=== PATIENT | female | born 1960 | race Caucasian/White ===

== ENCOUNTER 2016-07-14 13:16 | Emergency (ER) | payer MEDICAID ==
[~2016-07-14] VITALS: Ht 167.6 cm; Wt 55.1 kg
[~2016-07-14 13:16] MED LIST: ABILIFY 10MG TA10 MG PO; ALEVE 220MG220 MG PO; AMITRIPTYLINE H50 M1 PO; ASPIRIN 32325 MG/TAB PO; BUSPIRONE; CATAPRES 0.1MG0.1 MG PO; CELEBREX 200MG200 MG; CELEBREX50 MG PO; CELEXA; CLONAZEPAM PO; CYMBALTA 60MG60 MG PO; CYMBALTA20 MG PO; DEPAKOTE; DILAUDID 2MG TAB2 MG PO; FERROUS SU325 MG/TAB PO; FOLIC ACID; HYDROCODONE/APAP; KLONOPIN 0.5MG0.5 MG PO; KLONOPIN 1MG1 MG PO; LEXAPRO20 MG PO; LYRICA; LYRICA300 MG PO; MOBIC15 MG PO; NEURONTIN; OXYCODONE; OXYCODONE5 MG PO; OXYCONTIN20 MG PO; OXYCONTIN40 MG PO; OXYCONTIN60 MG PO; PHENERGAN 25 TA25 MG PO; ROXICODONE 55 MG/TAB PO; ROXICODONE15 MG PO; SEROQUEL 200MG200 MG PO; SEROQUEL400 MG PO; SOMA 350MG350 MG/TAB PO; ULTRAM 50MG TAB50 MG PO; VITAMIN C500 MG PO; XANAX 1MG1 MG PO
[2016-07-14 13:23] VITALS: BP 131/82; TEMP 98.7
[2016-07-14] MEDS ORDERED: VALIUM 5MG T5 MG/TAB PO (14:37)
[2016-07-14] MEDS ORDERED: PERCOCET 325 MG1 TA2 PO ×2 (14:37→14:57)
[2016-07-14] MEDS ORDERED: SOMA 350MG350 MG/TAB PO ×2 (14:56→14:57)
[2016-07-14 15:20] VITALS: PULSE 92
== END 2016-07-14 15:20 | disposition home or self-care (01) ==
LOC: COL.ER 13:16
DX: M54.5 Low back pain (principal); G89.29 Other chronic pain
CPT/HCPCS: J3360

== ENCOUNTER 2016-08-04 11:50 | Emergency (ER) | payer MEDICAID ==
[~2016-08-04] VITALS: Ht 172.7 cm; Wt 56.8 kg
[~2016-08-04 11:50] MED LIST changes: +PERCOCET 325 MG1 TA2 PO; +VALIUM 5MG T5 MG/TAB PO
[2016-08-04 11:56] VITALS: TEMP 99.3
[2016-08-04 13:05] LABS: AMPHETAMINE URINE NEGATIVE; BARBITURATES URINE NEGATIVE; BENZODIAZEPINES URINE NEGATIVE; BUPRENORPHINE URINE NEGATIVE; METHADONE URINE NEGATIVE; OPIATES URINE NEGATIVE; OXYCODONE URINE NEGATIVE; PHENCYCLIDINE URINE NEGATIVE; PROPOXYPHENE URINE NEGATIVE; THC CANNABINOIDS URINE NEGATIVE
[2016-08-04 13:53] LABS: BASO # 0.1 (0.0-0.2); BASO % 0.6 % (0.0-2.0); EOS # 0.1 (0.0-0.7); EOS % 1.3 % (0-4.0); GRAN % 48.5 % (42.2-75.2); HEMATOCRIT 40.2 % (37.0-47.0); HEMOGLOBIN 13.3 g/dl (12.5-16.0); LYMPH # 3.3 (1.2-3.4); MEAN CELL VOLUME 98 fl (80.0-100.0); MEAN CORPUSCULAR HEMOGLOBIN 32 pg (27.0-31.0); MEAN CORPUSCULAR HGB CONC 33 g/dl (33.0-37.0); MEAN PLATELET VOLUME 9.1 fl (7.4-10.4); MONO # 0.8 (0.1-0.6); MONO % 9.4 % (1.7-9.3); PLATELET COUNT 297 K/mm3 (130-400); RED BLOOD COUNT 4.12 M/mm3 (4.10-5.30); REDCELL DISTRIBUTION WIDTH-CV 13.4 % (11.5-14.5); WHITE BLOOD COUNT 8.3 K/mm3 (4.8-10.8)
[2016-08-04 13:58] LABS: ADJUSTED CALCIUM 9.7 mg/dL (8.4-10.2); ALANINE AMINOTRANSFERASE 22 U/L (9-52); ALBUMIN 4.6 gm/dL (3.5-5.0); ALKALINE PHOSPHATASE 92 U/L (50-136); ANION GAP 13 mmol/L (7-16); BILIRUBIN,TOTAL 0.5 mg/dL (0.0-1.0); BLOOD UREA NITROGEN 19 mg/dL (7-17); CALCIUM 10.2 mg/dL (8.4-10.2); CARBON DIOXIDE 27 mmol/L (22-30); CHLORIDE 102 mmol/L (98-107); CREATININE, serum 0.73 mg/dL (0.52-1.25); GLUCOSE 90 mg/dL (74-106); POTASSIUM 4.1 mmol/L (3.4-5.0); SODIUM 142 mmol/L (137-145); TOTAL PROTEIN 7.7 gm/dL (6.4-8.2)
[2016-08-04 16:51] LABS: PROLACTIN 5.8 ng/mL (3.0-18.6)
[2016-08-04] MEDS ORDERED: VALIUM 5MG T5 MG/TAB PO (16:51)
[2016-08-04 16:55] LABS: TROPONIN-I < 0.012 ng/mL (0.000-0.034)
[2016-08-04 17:06] VITALS: BP 145/85; PULSE 97
[2016-08-04 17:33] LABS: PH 5 (5-8); SQUAMOUS EPITHELIAL None Seen /hpf; URINE APPEARANCE Clear; URINE BACTERIA None Seen /hpf; URINE BILIRUBIN Negative (NEGATIVE); URINE BLOOD Negative (NEGATIVE); URINE COLOR Straw; URINE GLUCOSE Negative (NEGATIVE); URINE KETONE Negative (NEGATIVE); URINE RBC 0-2 /hpf; URINE UROBILINOGEN Negative (NEGATIVE); URINE WBC 0-2 /hpf
== END 2016-08-04 17:08 | disposition home or self-care (01) ==
LOC: COL.ER 11:50
PROVIDERS: Emergency Medicine
DX: F41.9 Anxiety disorder, unspecified (principal); F32.9 Major depressive disorder, single episode, unspecified; R20.0 Anesthesia of skin

== ENCOUNTER 2016-12-16 06:29 | Emergency (ER) | payer MEDICAID ==
[~2016-12-16] VITALS: Ht 165.1 cm; Wt 62.3 kg
[2016-12-16 06:32] VITALS: TEMP 98.5
[2016-12-16] MEDS ORDERED: NAPROSYN500 MG PO (06:35)
[2016-12-16 07:06] LABS: BASO # 0.1 (0.0-0.2); BASO % 1.4 % (0.0-2.0); EOS # 0.2 (0.0-0.7); EOS % 3.2 % (0-4.0); GRAN # 2.3 (1.4-6.5); GRAN % 40.5 % (42.2-75.2); HEMOGLOBIN 12.1 g/dl (12.5-16.0); LYMPH # 2.5 (1.2-3.4); LYMPH % 44.5 % (20.0-51.0); MEAN CELL VOLUME 98 fl (80.0-100.0); MEAN CORPUSCULAR HEMOGLOBIN 33 pg (27.0-31.0); MEAN CORPUSCULAR HGB CONC 34 g/dl (33.0-37.0); MEAN PLATELET VOLUME 8.7 fl (7.4-10.4); MONO # 0.6 (0.1-0.6); MONO % 10.2 % (1.7-9.3); PLATELET COUNT 252 K/mm3 (130-400); RED BLOOD COUNT 3.69 M/mm3 (4.10-5.30); REDCELL DISTRIBUTION WIDTH-CV 13.2 % (11.5-14.5); WHITE BLOOD COUNT 5.6 K/mm3 (4.8-10.8)
[2016-12-16 07:17] LABS: ADJUSTED CALCIUM 9.2 mg/dL (8.4-10.2); ALANINE AMINOTRANSFERASE 25 U/L (9-52); ALBUMIN 3.8 gm/dL (3.5-5.0); ALKALINE PHOSPHATASE 67 U/L (50-136); ANION GAP 8 mmol/L (7-16); BILIRUBIN,TOTAL 0.6 mg/dL (0.0-1.0); BLOOD UREA NITROGEN 11 mg/dL (7-17); CARBON DIOXIDE 23 mmol/L (22-30); CHLORIDE 107 mmol/L (98-107); CREATININE, serum 0.68 mg/dL (0.52-1.25); GLUCOSE 94 mg/dL (74-106); POTASSIUM 3.7 mmol/L (3.4-5.0); SODIUM 138 mmol/L (137-145); TOTAL PROTEIN 6.5 gm/dL (6.4-8.2)
[2016-12-16 07:29] LABS: TROPONIN-I < 0.012 ng/mL (0.000-0.034)
[2016-12-16] MEDS ORDERED: ATARAX 25MG25 MG/TAB PO (09:45)
[2016-12-16 10:45] VITALS: BP 131/79; PULSE 83
== END 2016-12-16 10:10 | disposition home or self-care (01) ==
LOC: COL.ER 06:29
PROVIDERS: Emergency Medicine
DX: G43.409 Hemiplegic migraine, not intractable, without status migrainosus (principal); F32.9 Major depressive disorder, single episode, unspecified; F41.9 Anxiety disorder, unspecified
CPT/HCPCS: J1200; J1885; J2765; J7030

== ENCOUNTER 2017-03-16 12:39 | Emergency (ER) | payer MEDICAID ==
[~2017-03-16] VITALS: Ht 165.1 cm; Wt 69.1 kg
[~2017-03-16 12:39] MED LIST changes: +ATARAX 25MG25 MG/TAB PO; +NAPROSYN500 MG PO
[2017-03-16 12:48] VITALS: BP 141/80; PULSE 83; TEMP 98.3
[2017-03-16] MEDS ORDERED: SEROQUEL XR200 MG PO (12:52)
[2017-03-16] MEDS ORDERED: CYMBALTA 60MG60 MG PO (12:52)
[2017-03-16] MEDS ORDERED: SEROQUEL50 MG PO (12:53)
== END 2017-03-16 13:49 | disposition left against medical advice (07) ==
LOC: COL.ER 12:39
DX: H92.02 Otalgia, left ear (principal)

== ENCOUNTER 2017-04-02 09:44 | Emergency (ER) | payer MEDICAID ==
[~2017-04-02] VITALS: Ht 165.1 cm; Wt 71.5 kg
[~2017-04-02 09:44] MED LIST changes: +SEROQUEL XR200 MG PO; +SEROQUEL50 MG PO
[2017-04-02 09:46] VITALS: TEMP 98.9
[2017-04-02] MEDS ORDERED: ZYPREXA 5MG5 MG PO (10:33)
[2017-04-02 10:56] VITALS: BP 136/77; PULSE 76
== END 2017-04-02 10:57 | disposition home or self-care (01) ==
LOC: COL.ER 09:44
DX: F41.9 Anxiety disorder, unspecified (principal)

== ENCOUNTER 2017-04-22 18:51 | Emergency (ER) | payer MEDICAID ==
[~2017-04-22] VITALS: Ht 165.1 cm; Wt 75.0 kg
[~2017-04-22 18:51] MED LIST changes: +ZYPREXA 5MG5 MG PO
[2017-04-22 18:54] VITALS: BP 139/85; TEMP 98.2
[2017-04-22] MEDS ORDERED: SEROQUEL50 MG PO (19:58)
[2017-04-22] MEDS ORDERED: ATARAX50 MG PO (19:59)
[2017-04-22] MEDS ORDERED: ATARAX 25MG25 MG/TAB PO (20:01)
[2017-04-22 20:53] VITALS: PULSE 75
== END 2017-04-22 20:53 | disposition home or self-care (01) ==
LOC: COL.ER 18:51
DX: F41.9 Anxiety disorder, unspecified (principal); G43.909 Migraine, unspecified, not intractable, without status migrainosus; F32.9 Major depressive disorder, single episode, unspecified; M54.9 Dorsalgia, unspecified; G89.29 Other chronic pain; F17.210 Nicotine dependence, cigarettes, uncomplicated
CPT/HCPCS: J1630

== ENCOUNTER 2017-06-24 12:50 | Emergency (ER) | payer MEDICAID ==
[~2017-06-24] VITALS: Ht 165.1 cm; Wt 78.0 kg
[~2017-06-24 12:50] MED LIST changes: +ATARAX50 MG PO
[2017-06-24 13:02] VITALS: BP 146/70; TEMP 98.3
[2017-06-24] MEDS ORDERED: LATUDA20 MG PO (13:43)
[2017-06-24] MEDS ORDERED: CENTRUM SILVER1 TAB PO (13:44)
[2017-06-24 13:51] LABS: TRICYCLIC ANTIDEPRESS URINE POSITIVE
[2017-06-24 14:00] LABS: BASO # 0.1 (0.0-0.2); BASO % 0.8 % (0.0-2.0); EOS # 0.2 (0.0-0.7); EOS % 2.4 % (0-4.0); GRAN % 42.8 % (42.2-75.2); HEMATOCRIT 43.2 % (37.0-47.0); HEMOGLOBIN 14.4 g/dl (12.5-16.0); LYMPH % 42.6 % (20.0-51.0); MEAN CELL VOLUME 97 fl (80.0-100.0); MEAN CORPUSCULAR HEMOGLOBIN 32 pg (27.0-31.0); MEAN CORPUSCULAR HGB CONC 33 g/dl (33.0-37.0); MEAN PLATELET VOLUME 9.1 fl (7.4-10.4); MONO # 0.8 (0.1-0.6); MONO % 11.3 % (1.7-9.3); PLATELET COUNT 293 K/mm3 (130-400); RED BLOOD COUNT 4.45 M/mm3 (4.10-5.30); REDCELL DISTRIBUTION WIDTH-CV 13.7 % (11.5-14.5)
[2017-06-24 14:10] LABS: ALANINE AMINOTRANSFERASE 27 U/L (9-52); ALBUMIN 4.3 gm/dL (3.5-5.0); ALKALINE PHOSPHATASE 100 U/L (50-136); ANION GAP 13 mmol/L (7-16); AST,SGOT 33 U/L (15-37); BILIRUBIN,TOTAL 0.3 mg/dL (0.0-1.0); BLOOD UREA NITROGEN 16 mg/dL (7-17); CALCIUM 9.8 mg/dL (8.4-10.2); CARBON DIOXIDE 26 mmol/L (22-30); CHLORIDE 103 mmol/L (98-107); CREATININE, serum 0.71 mg/dL (0.52-1.25); GLUCOSE 89 mg/dL (74-106); POTASSIUM 4.5 mmol/L (3.4-5.0); SODIUM 142 mmol/L (137-145); TOTAL PROTEIN 7.8 gm/dL (6.4-8.2)
[2017-06-24 14:13] LABS: ACETAMINOPHEN < 10 ug/mL (10-30); ALCOHOL(ethanol),MEDICAL < 10 mg/dL; SALICYLATE < 1.0 mg/dL
[2017-06-24 17:30] VITALS: PULSE 82
== END 2017-06-24 17:31 | disposition home or self-care (01) ==
LOC: COL.ER 12:50
PROVIDERS: Physician Assistant
DX: F32.9 Major depressive disorder, single episode, unspecified (principal); F41.9 Anxiety disorder, unspecified; F17.210 Nicotine dependence, cigarettes, uncomplicated
CPT/HCPCS: J1885

== ENCOUNTER → 2017-08-29 | Outpatient (CLI) | payer MEDICAID ==
[~2017-08-29] MED LIST changes: +AMBIEN 10MG10 MG PO; +CENTRUM SILVER1 TAB PO; +LATUDA20 MG PO; +REXULTI0.5 MG PO; +TOPAMAX50 MG PO
== END ==
LOC: COL.RAD 14:00
DX: M47.816 Spondylosis without myelopathy or radiculopathy, lumbar region (principal); M51.27 Other intervertebral disc displacement, lumbosacral region; M99.73 Connective tissue and disc stenosis of intervertebral foramina of lumbar region; M48.061 Spinal stenosis, lumbar region without neurogenic claudication; M46.86 Other specified inflammatory spondylopathies, lumbar region

== ENCOUNTER 2017-10-14 12:58 | Emergency (ER) | payer MEDICAID ==
[~2017-10-14] VITALS: Ht 170.2 cm; Wt 69.5 kg
[2017-10-14 13:00] VITALS: BP 140/80; TEMP 98.1
[2017-10-14] MEDS ORDERED: DESYREL 100MG100 MG PO (13:10)
[2017-10-14] MEDS ORDERED: CYMBALTA 60MG60 MG PO (13:11)
[2017-10-14] MEDS ORDERED: ULTRAM 50MG TAB50 MG PO (14:47)
[2017-10-14 15:12] VITALS: PULSE 86
== END 2017-10-14 15:15 | disposition home or self-care (01) ==
LOC: COL.ER 12:58
DX: S22.32XA Fracture of one rib, left side, initial encounter for closed fracture (principal); F41.9 Anxiety disorder, unspecified; F17.210 Nicotine dependence, cigarettes, uncomplicated; Z98.890 Other specified postprocedural states; W19.XXXA Unspecified fall, initial encounter; W22.8XXA Striking against or struck by other objects, initial encounter; Y92.009 Unspecified place in unspecified non-institutional (private) residence as the place of occurrence of the external cause
CPT/HCPCS: A9284; J1885

== ENCOUNTER 2017-10-15 12:20 | Emergency (ER) | payer MEDICAID ==
[~2017-10-15] VITALS: Ht 167.6 cm; Wt 69.5 kg
[~2017-10-15 12:20] MED LIST changes: +DESYREL 100MG100 MG PO
[2017-10-15 12:24] VITALS: TEMP 98
[2017-10-15 13:26] LABS: BASO # 0.1 (0.0-0.2); EOS # 0.3 (0.0-0.7); EOS % 4.6 % (0-4.0); GRAN # 3.8 (1.4-6.5); GRAN % 51.8 % (42.2-75.2); HEMATOCRIT 37.2 % (37.0-47.0); HEMOGLOBIN 12.9 g/dl (12.5-16.0); LYMPH # 2.5 (1.2-3.4); LYMPH % 34.1 % (20.0-51.0); MEAN CELL VOLUME 94 fl (80.0-100.0); MEAN CORPUSCULAR HEMOGLOBIN 33 pg (27.0-31.0); MEAN CORPUSCULAR HGB CONC 35 g/dl (33.0-37.0); MEAN PLATELET VOLUME 8.6 fl (7.4-10.4); MONO # 0.6 (0.1-0.6); MONO % 8.4 % (1.7-9.3); PLATELET COUNT 327 K/mm3 (130-400); RED BLOOD COUNT 3.95 M/mm3 (4.10-5.30); REDCELL DISTRIBUTION WIDTH-CV 13.9 % (11.5-14.5)
[2017-10-15 13:43] LABS: COLLECTION METHOD CLEAN CATCH
[2017-10-15 13:44] LABS: ALANINE AMINOTRANSFERASE 21 U/L (9-52); ALBUMIN 4.1 gm/dL (3.5-5.0); ALKALINE PHOSPHATASE 76 U/L (50-136); ANION GAP 9 mmol/L (7-16); AST,SGOT 25 U/L (15-37); BILIRUBIN,TOTAL 0.2 mg/dL (0.0-1.0); BLOOD UREA NITROGEN 10 mg/dL (7-17); CALCIUM 9.7 mg/dL (8.4-10.2); CARBON DIOXIDE 25 mmol/L (22-30); CHLORIDE 104 mmol/L (98-107); CREATININE, serum 0.89 mg/dL (0.52-1.25); GLUCOSE 95 mg/dL (74-106); POTASSIUM 3.8 mmol/L (3.4-5.0); SODIUM 138 mmol/L (137-145)
[2017-10-15 13:49] LABS: ACETAMINOPHEN < 10 ug/mL (10-30); ALCOHOL(ethanol),MEDICAL < 10 mg/dL; SALICYLATE < 1.0 mg/dL
[2017-10-15 13:49] LABS: MUCOUS Present /lpf; PH 5 (5-8); SQUAMOUS EPITHELIAL None Seen /hpf; URINE APPEARANCE Clear; URINE BACTERIA Rare /hpf; URINE BILIRUBIN Negative (NEGATIVE); URINE BLOOD Negative (NEGATIVE); URINE COLOR Yellow; URINE GLUCOSE Negative (NEGATIVE); URINE KETONE Negative (NEGATIVE); URINE LEUKOCYTE ESTERASE Negative (NEGATIVE); URINE NITRATE Negative (NEGATIVE); URINE PROTEIN(semi-quant) Negative (NEGATIVE); URINE RBC None Seen /hpf; URINE UROBILINOGEN Negative (NEGATIVE)
[2017-10-15 14:18] LABS: TRICYCLIC ANTIDEPRESS URINE NEGATIVE
[2017-10-15 17:03] VITALS: BP 125/85; PULSE 90
== END 2017-10-15 17:00 | disposition home or self-care (01) ==
LOC: COL.ER 12:20
PROVIDERS: Emergency Medicine
DX: F32.9 Major depressive disorder, single episode, unspecified (principal); F41.9 Anxiety disorder, unspecified; R45.851 Suicidal ideations; F17.210 Nicotine dependence, cigarettes, uncomplicated; Z87.81 Personal history of (healed) traumatic fracture

== ENCOUNTER 2018-05-10 10:20 | Emergency (ER) | payer MEDICAID ==
[~2018-05-10] VITALS: Ht 165.1 cm; Wt 65.9 kg
[2018-05-10 10:25] VITALS: BP 127/90; TEMP 98.6
[2018-05-10 11:16] LABS: TRICYCLIC ANTIDEPRESS URINE NEGATIVE
[2018-05-10 11:25] LABS: BASO # 0.1 (0.0-0.2); BASO % 0.7 % (0.0-2.0); EOS # 0.1 (0.0-0.7); EOS % 1.3 % (0-4.0); GRAN # 4.4 (1.4-6.5); GRAN % 62.1 % (42.2-75.2); HEMATOCRIT 40.5 % (37.0-47.0); HEMOGLOBIN 13.9 g/dl (12.5-16.0); LYMPH % 28.2 % (20.0-51.0); MEAN CELL VOLUME 94 fl (80.0-100.0); MEAN CORPUSCULAR HEMOGLOBIN 32 pg (27.0-31.0); MEAN CORPUSCULAR HGB CONC 34 g/dl (33.0-37.0); MEAN PLATELET VOLUME 8.8 fl (7.4-10.4); MONO # 0.5 (0.1-0.6); MONO % 7.4 % (1.7-9.3); PLATELET COUNT 347 K/mm3 (130-400); RED BLOOD COUNT 4.32 M/mm3 (4.10-5.30); REDCELL DISTRIBUTION WIDTH-CV 13.6 % (11.5-14.5)
[2018-05-10 11:33] LABS: ALANINE AMINOTRANSFERASE 15 U/L (9-52); ALBUMIN 3.8 gm/dL (3.5-5.0); ALKALINE PHOSPHATASE 96 U/L (50-136); ANION GAP 5 mmol/L (7-16); AST,SGOT 21 U/L (15-37); BILIRUBIN,TOTAL 0.4 mg/dL (0.0-1.0); BLOOD UREA NITROGEN 9 mg/dL (7-17); CALCIUM 9.2 mg/dL (8.4-10.2); CARBON DIOXIDE 26 mmol/L (22-30); CHLORIDE 106 mmol/L (98-107); CREATININE, serum 0.65 mg/dL (0.52-1.25); GLUCOSE 102 mg/dL (74-106); SODIUM 137 mmol/L (137-145); TOTAL PROTEIN 6.9 gm/dL (6.4-8.2)
[2018-05-10 11:34] LABS: ACETAMINOPHEN < 10 ug/mL (10-30); ALCOHOL(ethanol),MEDICAL < 10 mg/dL; SALICYLATE < 1.0 mg/dL
[2018-05-10 12:03] LABS: THYROID STIMULATING HORMONE 0.511 uIU/mL (0.465-4.680)
[2018-05-10 15:32] VITALS: PULSE 92
== END 2018-05-10 15:32 | disposition home or self-care (01) ==
LOC: COL.ER 10:20
PROVIDERS: Emergency Medicine
DX: R45.851 Suicidal ideations (principal); F32.9 Major depressive disorder, single episode, unspecified; F15.10 Other stimulant abuse, uncomplicated; F41.9 Anxiety disorder, unspecified; Z79.891 Long term (current) use of opiate analgesic

== ENCOUNTER 2018-11-20 18:22 | Emergency (ER) | payer MEDICAID ==
[~2018-11-20] VITALS: Ht 162.6 cm; Wt 65.9 kg
[2018-11-20 19:25] VITALS: BP 119/66; TEMP 98.3
[2018-11-20] MEDS ORDERED: NORCO 325 MG-51 TAB PO (21:11)
[2018-11-20 21:30] VITALS: PULSE 87
== END 2018-11-20 21:30 | disposition home or self-care (01) ==
LOC: COL.ER 18:22
DX: S52.121A Displaced fracture of head of right radius, initial encounter for closed fracture (principal); M25.561 Pain in right knee; F17.210 Nicotine dependence, cigarettes, uncomplicated; W10.9XXA Fall (on) (from) unspecified stairs and steps, initial encounter; Y92.009 Unspecified place in unspecified non-institutional (private) residence as the place of occurrence of the external cause
CPT/HCPCS: L1846; Q4050

== ENCOUNTER 2019-12-12 09:48 | Emergency (ER) | payer MEDICAID ==
[~2019-12-12] VITALS: Ht 167.6 cm; Wt 96.6 kg
[~2019-12-12 09:48] MED LIST changes: +NORCO 325 MG-51 TAB PO
[2019-12-12 09:54] VITALS: TEMP 98.9
[2019-12-12] MEDS ORDERED: ZYPREXA ZYDIS5 MG PO (11:02)
[2019-12-12] MEDS ORDERED: CYMBALTA 60MG60 MG PO (11:02)
[2019-12-12] MEDS ORDERED: DESYREL 100MG100 MG PO (11:02)
[2019-12-12] MEDS ORDERED: ATARAX 25MG25 MG/TAB PO (11:23)
[2019-12-12 11:57] VITALS: PULSE 85
== END 2019-12-12 11:33 | disposition home or self-care (01) ==
LOC: COL.ER 09:48
DX: G89.29 Other chronic pain (principal); M25.569 Pain in unspecified knee; F41.9 Anxiety disorder, unspecified; F32.9 Major depressive disorder, single episode, unspecified; Z91.19 Patient's noncompliance with other medical treatment and regimen; Z88.8 Allergy status to other drugs, medicaments and biological substances
CPT/HCPCS: J1885

== ENCOUNTER 2020-05-15 16:06 | Emergency (ER) | payer MEDICAID ==
[~2020-05-15] VITALS: Ht 167.6 cm; Wt 90.9 kg
[~2020-05-15 16:06] MED LIST changes: +ZYPREXA ZYDIS5 MG PO
[2020-05-15 16:20] VITALS: TEMP 98.6
[2020-05-15] MEDS ORDERED: LIDODERM 5% PATC1 EA TP (17:54)
[2020-05-15] MEDS ORDERED: SOMA250 MG PO ×2 (17:54)
[2020-05-15 18:22] VITALS: BP 138/88; PULSE 94
[2020-05-16] MEDS ORDERED: SOMA 350MG350 MG/TAB PO (10:11)
== END 2020-05-15 18:22 | disposition home or self-care (01) ==
LOC: COL.ER 16:06
DX: M54.5 Low back pain (principal); F41.9 Anxiety disorder, unspecified; F32.9 Major depressive disorder, single episode, unspecified; G89.29 Other chronic pain; F17.290 Nicotine dependence, other tobacco product, uncomplicated; Z88.8 Allergy status to other drugs, medicaments and biological substances
CPT/HCPCS: J1885; J2360

== ENCOUNTER 2020-08-30 10:11 | Emergency (ER) | payer MEDICAID ==
[~2020-08-30] VITALS: Ht 167.6 cm; Wt 90.9 kg
[~2020-08-30 10:11] MED LIST changes: +LIDODERM 5% PATC1 EA TP; +SOMA250 MG PO
[2020-08-30 11:02] LABS: COLLECTION METHOD CLEAN CATCH
[2020-08-30 11:06] LABS: BASO % 0.5 % (0.0-2.0); EOS # 0.1 (0.0-0.7); EOS % 1.3 % (0-4.0); GRAN # 4.6 (1.4-6.5); GRAN % 58.1 % (42.2-75.2); HEMATOCRIT 43.9 % (37.0-47.0); HEMOGLOBIN 14.3 g/dl (12.5-16.0); LYMPH # 2.4 (1.2-3.4); LYMPH % 30.8 % (20.0-51.0); MEAN CELL VOLUME 96 fl (80.0-100.0); MEAN CORPUSCULAR HEMOGLOBIN 31 pg (27.0-31.0); MEAN CORPUSCULAR HGB CONC 33 g/dl (33.0-37.0); MEAN PLATELET VOLUME 9.8 fl (7.4-10.4); MONO # 0.7 (0.1-0.6); PLATELET COUNT 284 K/mm3 (130-400); RED BLOOD COUNT 4.57 M/mm3 (4.10-5.30); REDCELL DISTRIBUTION WIDTH-CV 13.7 % (11.5-14.5)
[2020-08-30 11:13] LABS: PH 6 (5-8); SQUAMOUS EPITHELIAL 0-2 /hpf; URINE APPEARANCE Clear; URINE BACTERIA None Seen /hpf; URINE BILIRUBIN Negative (NEGATIVE); URINE BLOOD Negative (NEGATIVE); URINE COLOR Yellow; URINE GLUCOSE Negative (NEGATIVE); URINE KETONE Negative (NEGATIVE); URINE LEUKOCYTE ESTERASE Negative (NEGATIVE); URINE NITRATE Negative (NEGATIVE); URINE PROTEIN(semi-quant) Negative (NEGATIVE); URINE RBC 0-2 /hpf; URINE UROBILINOGEN Negative (NEGATIVE)
[2020-08-30 11:27] LABS: TRICYCLIC ANTIDEPRESS URINE NEGATIVE
[2020-08-30 11:29] LABS: ACETAMINOPHEN < 10 ug/mL (10-30)
[2020-08-30 11:30] LABS: ALCOHOL(ethanol),MEDICAL < 10 mg/dL; SALICYLATE < 1.0 mg/dL
[2020-08-30 11:37] LABS: ALANINE AMINOTRANSFERASE 10 U/L (4-34); ALBUMIN 3.8 gm/dL (3.5-5.0); ALKALINE PHOSPHATASE 71 U/L (50-136); ANION GAP 1 mmol/L (7-16); AST,SGOT 18 U/L (15-37); BILIRUBIN,TOTAL 0.4 mg/dL (0.0-1.0); BLOOD UREA NITROGEN 16 mg/dL (7-17); CALCIUM 9.1 mg/dL (8.4-10.2); CARBON DIOXIDE 29 mmol/L (22-30); CHLORIDE 105 mmol/L (98-107); CREATININE, serum 0.83 (0.52-1.25); GLUCOSE 99 mg/dL (74-106); POTASSIUM 4.2 mmol/L (3.4-5.0); SODIUM 135 mmol/L (137-145); TOTAL PROTEIN 6.8 gm/dL (6.4-8.2)
[2020-08-30 14:10] VITALS: TEMP 98
[2020-08-30 17:15] VITALS: BP 133/79; PULSE 78
== END 2020-08-30 17:15 ==
LOC: COL.ER 10:11
PROVIDERS: Emergency Medicine
DX: F32.9 Major depressive disorder, single episode, unspecified (principal); R45.851 Suicidal ideations; M79.7 Fibromyalgia; F17.210 Nicotine dependence, cigarettes, uncomplicated; Z20.822 Contact with and (suspected) exposure to COVID-19; Z79.899 Other long term (current) drug therapy

== ENCOUNTER → 2021-02-13 | Outpatient (CLI) | payer MEDICAID | LOC: COL.LAB 09:39 → COL.RAD 09:43 | DX: R91.8 Other nonspecific abnormal finding of lung field (principal) ==

== ENCOUNTER 2022-02-08 09:47 | Emergency (ER) | payer MEDICAID ==
[~2022-02-08] VITALS: Ht 170.2 cm; Wt 68.2 kg
[2022-02-08 09:50] VITALS: TEMP 98.3
[2022-02-08 11:38] VITALS: BP 158/89; PULSE 88
== END 2022-02-08 11:50 | disposition home or self-care (01) ==
LOC: COL.ER 09:47
DX: F31.9 Bipolar disorder, unspecified (principal); Z28.310 Unvaccinated for COVID-19

== ENCOUNTER 2023-04-03 15:26 | Emergency (ER) | payer MEDICAID ==
[~2023-04-03] VITALS: Ht 162.6 cm; Wt 60.5 kg
[2023-04-03 15:26] VITALS: TEMP 97.9
[~2023-04-03 15:26] MED LIST changes: +CEPHALEXIN500 M1 PO; +CRUTCHES MC; +KLONOPIN2 MG PO; +LEXAPRO 10MG10 MG PO; +REMERON30 MG PO; +STRATTERA 40MG40 MG PO; +WALKER MC; +[UNRECOGNIZED DRUG - OTHER]
[2023-04-03 16:20] VITALS: BP 164/88; PULSE 86
[2023-04-03] MEDS ORDERED: NORCO 325 MG-51 TAB PO (18:01)
== END 2023-04-03 18:25 | disposition home or self-care (01) ==
LOC: COL.ER 15:26
DX: S73.004A Unspecified dislocation of right hip, initial encounter (principal); F17.200 Nicotine dependence, unspecified, uncomplicated; Z96.641 Presence of right artificial hip joint; X50.1XXA Overexertion from prolonged static or awkward postures, initial encounter
CPT/HCPCS: J1885; J2270; J2704; J7030

== ENCOUNTER 2023-04-24 22:14 | Inpatient (IN) | payer MEDICAID ==
[~2023-04-24] VITALS: Ht 162.6 cm; Wt 60.3 kg
[2023-04-24] MEDS ORDERED: NS 1,000 ML IV ONE (22:45)
[2023-04-24] MEDS ORDERED: Morphine 4 MG/ML VIAL IV ONE (22:45)
[2023-04-24 23:07] LABS: BASO # 0.1 K/mm3 (0.0-0.2); BASO % 0.6 % (0.0-2.0); EOS # 0.1 K/mm3 (0.0-0.7); EOS % 0.6 % (0.0-4.0); GRAN # 7.3 K/mm3 (1.4-6.5); GRAN % 67.8 % (42.2-75.2); HEMATOCRIT 39.3 % (37.0-47.0); HEMOGLOBIN 13.7 g/dl (12.5-16.0); LYMPH # 2.4 K/mm3 (1.2-3.4); LYMPH % 22.4 % (20.0-51.0); MEAN CELL VOLUME 93 fl (80.0-100.0); MEAN CORPUSCULAR HEMOGLOBIN 32 pg (27-31); MEAN CORPUSCULAR HGB CONC 35 g/dl (33.0-37.0); MEAN PLATELET VOLUME 8.6 fl (7.4-10.4); MONO # 0.9 K/mm3 (0.1-0.6); MONO % 8.4 % (1.7-9.3); PLATELET COUNT 365 K/mm3 (130-400); RED BLOOD COUNT 4.23 M/mm3 (4.10-5.30); REDCELL DISTRIBUTION WIDTH-CV 13.8 % (11.5-14.5)
[2023-04-24 23:18] LABS: INR 1.1 (0.8-3.0); PROTHROMBIN TIME 11.7 SECONDS (9.7-12.8)
[2023-04-24 23:21] LABS: PARTIAL THROMBOPLASTIN TIME 32.7 SECONDS (26.0-37.0)
[2023-04-24 23:26] LABS: BILIRUBIN,TOTAL 0.4 mg/dL (0.2-1.2); CALCIUM 9.8 mg/dL (8.4-10.2); CREATININE, serum 0.8 mg/dL (0.57-1.11); POTASSIUM 3.7 mmol/L (3.5-4.5); TOTAL PROTEIN 7.4 gm/dL (6.2-8.1)
[2023-04-25] VITALS (16 sets, daily range): BP systolic 114–168; BP diastolic 69–99; PULSE 72–95; TEMP 97.2–98.2
[2023-04-25] MEDS ORDERED: Morphine 4 MG/ML VIAL IV ONE ×2 (00:45→02:30)
[2023-04-25] MEDS ORDERED: Polyethylene Glycol 3350 17 GM PDS PO PRN (03:00)
[2023-04-25] MEDS ORDERED: Morphine 4 MG/ML VIAL IV PRN ×2 (03:00→14:00)
[2023-04-25] MEDS ORDERED: Acetaminophen 500 MG TAB PO PRN (03:00)
[2023-04-25] MEDS ORDERED: Ondansetron 4 MG/2 ML VIAL IV PRN ×2 (03:00→14:45)
--- NOTE | 2023-04-25 03:15 | NUR ---
RECEIVED REPORT FROM Nicanor NURSECHIVO. WAITING FOR PATIENT ARRIVAL TO ROOM FOR ADMIT FOR DISLOCATED R HIP TO ROOM 348.
--- NOTE | 2023-04-25 03:30 | NUR ---
PATIENT ARRIVED TO FLOOR, ADMITTED TO ROOM 348. PATIENT VERY AGITATED AND VERBALLY YELLING AND SPITTING AT STAFF DURING TRANSFERING FROM E.D CART TO ROOM BED WITH X4 ASSIST D/T PAIN. INT IN PLACE TO RAC. PATIENT ON ROOM AIR. PURE WICK IN PLACE. OBSERVED PATIENT UNABLE TO MOVE RLE DUE TO PAIN.
[2023-04-25] MEDS ORDERED: DESYREL DIVIDO150 M1 PO (04:19)
[2023-04-25] MEDS ORDERED: THORAZINE100 MG/TAB PO ×2 (04:19→05:01)
--- NOTE | 2023-04-25 05:12 | NUR ---
Patient requested anxiety med, Thorazine as she takes at home. Called oncall hosp provider, Dr Spain, regaring patient's request, telephone order given for 200 mg Thorazine po at hs, may have dose now.
--- NOTE | 2023-04-25 05:39 | NUR ---
AFTER X3 CALLS TO [facility] REGARDING PATIENT REQUEST FOR ANXIETY MED, INITALLY REQUESTING THORAZINE ORAL DOSE, MED NOT ON FORMULARY AND AFTER DISCUSSION WITH PHARMACY THERE IS NO CONVERSION FROM IV/IM THORAZINE TO DOSE PATIENT PER HOME DOSING. PATIENT AGREEABLE TO TAKE KLONIPAN 2 MG, CONTACTED [facility] PROVIDER OF KLONIPAN 2MG WITH PROVIDER TO ENTER ORDER.
[2023-04-25] MEDS ORDERED: clonazePAM 1 MG TAB PO ONE (05:45)
[2023-04-25] MEDS ORDERED: hydrOXYzine HCl 25 MG TAB PO PRN (05:45)
--- NOTE | 2023-04-25 05:53 | NUR ---
REFUSES TO WEAR SCDS OR TEDS AT THIS TIME PREOP. PATIENT REPORTS FEELING VERY ANXIOUS AND AGITATED.
--- NOTE | 2023-04-25 07:00 | NUR ---
PT RESTING IN BED WITH PAIN 8/10 AND SINGS OF ANXIETY. PAIN AND ANXIETY MEDICATION GIVEN PER EMAR. SMALL SCABS FROM PATIENT PICKING AT SKIN ALL OVER PT BODY. OPEN PUSTULE ON RIGHT ELBOW, DRESSING APPLIED. OPEN PUSTULE ON LET INNER THIGH, DRESSING APPLIED. PT A/O X4, VITALS STABLE, WILL CONTINUE TO MONITOR.
[2023-04-25] MEDS ORDERED: LR 1,000 ML IV SCH (08:15)
[2023-04-25] MEDS ORDERED: hydrALAZINE 25 MG TAB PO SCH (08:20)
[2023-04-25] MEDS ORDERED: hydrALAZINE 10 MG TAB PO PRN (08:30)
[2023-04-25] MEDS ORDERED: LORazepam 2 MG/ML 1 ML VIAL IV ONE (08:45)
[2023-04-25] MEDS ORDERED: NS 1,000 ML IV SCH (08:45)
[2023-04-25] MEDS ORDERED: hydrALAZINE 20 MG/ML 1 ML VIAL IV PRN (08:45)
--- NOTE | 2023-04-25 09:30 | NUR ---
SECURITY CALLED TO REMOVE KNIVES, TOOTH CUTTER SPUR, AND CIGARETTES FROM PATIENT ROOM AFTER COMMENTS OF SMOKING IN THE ROOM.
[2023-04-25] MEDS ORDERED: Vancomycin 1.25 GM,Special Dose/Pharmacy Prepared 1.25 GM in NS 250 ML IV ONE (09:45)
[2023-04-25] MEDS ORDERED: Albuterol 0.021% Neb Soln 0.63 MG/3 ML UD IH ONE (09:45)
[2023-04-25] MEDS ORDERED: LORazepam 2 MG/ML 1 ML VIAL IV PRN (10:00)
[2023-04-25] MEDS ORDERED: Regadenoson 0.08 MG/ML 5 ML SYRINGE IV SCH (12:36)
[2023-04-25] MEDS ORDERED: Midazolam 2 MG/2 ML VIAL ONE (13:20)
[2023-04-25] MEDS ORDERED: fentaNYL 50 MCG/ML 2 ML VIAL ONE (13:20)
[2023-04-25] MEDS ORDERED: Lidocaine PF 2% (20 MG/ML) 5 ML VIAL ONE (13:21)
[2023-04-25] MEDS ORDERED: Naloxone 0.4 MG/ML VIAL IV PRN (14:00)
[2023-04-25] MEDS ORDERED: HYDROcodone/Acetaminophen 7.5-325 MG TAB PO PRN (14:00)
[2023-04-25] MEDS ORDERED: Promethazine 12.5 MG in NS 50 ML IV PRN (14:00)
[2023-04-25] MEDS ORDERED: Promethazine 25 MG in NS 50 ML IV PRN (14:00)
[2023-04-25] MEDS ORDERED: Meperidine 50 MG/ML 1 ML VIAL IV PRN (14:45)
[2023-04-25] MEDS ORDERED: HYDROmorphone 2 MG/1 ML VIAL IV PRN (14:45)
[2023-04-25] MEDS ORDERED: fentaNYL 50 MCG/ML 2 ML VIAL IV PRN (14:45)
--- NOTE | 2023-04-25 15:15 | NUR ---
PT UP TO FLOOR AT THIS TIME. VITALS STABLE, NO PAIN, PT IN GOOD SPIRITS. LUIS TO DEPENDENT DRAINAGE, YELLOW CLEAR URINE. PT TOLERTING ICE CHIPS, WILL CONTINUE TO ADVANCE DIET TOLERATED.
[2023-04-25] MEDS ORDERED: Nicotine 21 MG DAILY PATCH TD SCH (15:55)
--- NOTE | 2023-04-25 16:31 | NUR ---
fruit worker stopped by patient's room twice but she was out of the room for surgery. SW returned later and patient had returned from surgery but was sound asleep. SW will follow up tomorrow.
--- NOTE | 2023-04-25 19:19 | NUR ---
report received from vasyl guillaume. pt resting in bed on the phone with family. pt remains on post op vital signs without issue. bed alarm on. call light in reach. all needs met at this time.
[2023-04-25] MEDS ORDERED: traZODone 100 MG TAB PO SCH (21:00)
--- NOTE | 2023-04-25 22:18 | NUR ---
shift assessment complete, see documentation. pt c/o low back pain. prn 4mg IV morphine administered per orders, pt reported relief. pt getting agitated easily but staff is able to redirect without issue. pt tolerated hs meds well. pt right elbow redressed. pt now off post op vital signs. abd pillow remains in place. bed alarm on. call light in reach. all needs met at this time.
[2023-04-26] VITALS (13 sets, daily range): BP systolic 89–138; BP diastolic 51–82; PULSE 67–106; TEMP 97.8–99.8
--- NOTE | 2023-04-26 03:40 | NUR ---
pt requested prn pain medications twice. pain medications pulled and pt was sleeping, equal and unlabored breaths noted. pain medications were pulled a second time but returned d/t pt low bp. pt encouraged to increase fluid intake to increase bp. bed alarm on. call light in reach. all needs met at this time.
--- NOTE | 2023-04-26 04:34 | NUR ---
pt reporting 8/10 low back pain. pt refused norco stating "one norco pill doesnt do shit for my pain". prn morphine administered per orders. left wrist iv began leaking. left wrist iv dc'd. new iv placed to right forearm. pt tolerated well. bed alarm on. call light in reach. all needs met at this time.
--- NOTE | 2023-04-26 06:09 | NUR ---
pt reports relief from prn morphine. pt c/o catheter leaking. catheter remains in place and draining to bag without issue. pt educated to not push when she feels the need to urinate, pt provides understanding. pt resting in bed watching tv. pt refusing to leave left leg in abduction pillow. pt educated on importance of abduction pillow, pt provides understanding. bed alarm on. call light in reach. all needs met at this time.
--- NOTE | 2023-04-26 12:27 | NUR ---
Patient resting in bed. She has been on the phone most of the day, she is not willing to get off phone when staff enters the room to complete cares. Staff trying to be patient, but patient prioritizes her phone calls over care to be provided. Quick assessment completed, unable to thourally assess do to patient continually being on the phone and patient not wanting to be interupted. She reports she has things to take care of. Patient upset about only receiving Lily [place] for pain, she reports prior opioid addication and having a high tolerance. Disccused with patient that she has not had a Lily Dale does in over 12 hours and we should try. Patient had new nicoderm patch applied to right arm. I discussed cares with he is aware, Apresoline held this am due to low BP. Patient eating and drinking without nausea. Hodan to LUANA. Therapy reports patient did not listen to hip precautions instructions given this am. Not willing to take advice about hip precautions. Will monitor
--- NOTE | 2023-04-26 13:58 | NUR ---
mold release worker met with patient to discuss discharge planning. Patient reports she lives in [place] by herself. Best point of contact is her son, Isauro, P# [phone]. Patient has another contact, [place], whom is a friend but should only be contacted if Isauro is not available. PCP is Dr. Dsouza, pharmacy is [facility]. No issues affording medications. Insurance is [employer]. DME is a cane and has a wider walker that she said cannot fit through her doorways. If she needs a walker, she would need a referral for a standard sized walker. Reports to be independent with ADLS and uses [facility] or [facility] for transportation to and from appointments. Patient wanted to establish a DPOA-HC, SW assisted patient with the form. SW and RN witnessed signature. SW made several copies, placed copy in chart, provided original and copies to the patient. SW provided drug and alcohol treatment options. Patient reports she has a case folder through [facility] whom is working with her to get outpatient treatment established. Patient reports she would like to return home at time of discharge. Discharge plan: Home
--- NOTE | 2023-04-26 14:27 | NUR ---
Patient continue to be on her phone frequently. She also is ruffling though paperwork tearful at times because she thought she lost some papers she had droped on the floor. Her conversation is irratic at times. She does appear anxious. Will continue to monitor closely.
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
--- NOTE | 2023-04-26 18:55 | NUR ---
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 Patient has visitor.
--- NOTE | 2023-04-26 19:13 | NUR ---
report received from bill guillaume. pt sitting in bed with visitor at bedside. pt on the phone. no outward signs of pain noted. bed alarm on. call light in reach. all needs met at this time.
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
--- NOTE | 2023-04-26 23:27 | NUR ---
pt reporting pain relief from prn medication. pt also seems less anxious and is finally attempting to sleep. pt states she feels better. bed alarm on. call light in reach. all needs met at this time.
[2023-04-27] VITALS (11 sets, daily range): BP systolic 95–129; BP diastolic 38–73; PULSE 76–93; TEMP 97.5–98.5
--- NOTE | 2023-04-27 05:08 | NUR ---
pt reporting increased low back pain. pt states her hip has no pain. pt removed abductor pillow. pt was educated on the use and risks of not following protocol, pt provided understanding. prn norco administered per orders. bed alarm on. call light in reach. all needs met at this time.
--- NOTE | 2023-04-27 08:48 | NUR ---
PATIENT ALERT AND ORIENTED X4. VSS. PATIENT HERE FOR DISLOCATED RIGHT HIP. PATIENT REPORTS INCREASED ANXIETY, REQUESTS ATARAX. RIGHT ELBOW REDRESSED, NO OOZING. PATIENT ENCOURAGED TO LEAVE SITE ALONE. LEFT INNER THIGH WITH DRESSING INTACT, PATIENT ONCE AGAIN, ENCOURAGED TO LEAVE SITE ALONE AND NOT SCRATCH OPEN WOUND. NICOTINE PATCH TO LEFT UPPER ARM THIS AM. PATIENT TOLERATING PO, NO COMPLAINTS OF N/V. LUIS TO DD WITH LIGHT YELLOW OUTPUT. LEFT FA INT FLUSHES WELL. PATIENT REMOVED ABDUCTOR PILLOW. PATIENT ENCOURAGED TO LEAVE IN PLACE WHILE IN BED. PATIENT BENDING OVER AND PICKING UP ITEMS ON FLOOR WHILE THIS NURSE IN ROOM. PATIENT, AGAIN, ENCOURAGED TO MAINTAIN PROPER HIP PRECAUTIONS. CALL LIGHT IN REACH. NO FURTHER NEEDS.
[2023-04-27] MEDS ORDERED: cefTRIAXone 1 G in Water For Injection,Sterile 10 ML IV SCH (09:30)
[2023-04-27 11:01] LABS: CREATININE, serum 0.69 mg/dL (0.57-1.11)
--- NOTE | 2023-04-27 11:54 | NUR ---
UNABLE TO HANG IV VANC ON TIME DUE TO PENDING VANC TROUGH
--- NOTE | 2023-04-27 14:11 | NUR ---
SW visited with patient about community resources and HH referral/set up. Patient inquired about meals on wheels and was provided information on [facility] meals and contact info. 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 SW will review PT/OT notes to see if order, prior to discharge. Patient indicated that she would like to use [facility] for her HH agency and decline the list of options. DC plan: pending--home with HH ([facility])
--- NOTE | 2023-04-27 15:31 | NUR ---
SW sent referral packet to patients choice ([facility]) for review.
[2023-04-27] MEDS ORDERED: ALPRAZolam 0.5 MG TAB PO SCH (21:00)
[2023-04-28] VITALS (7 sets, daily range): BP systolic 94–111; BP diastolic 58–68; PULSE 84–96; TEMP 97.8–98.3
[2023-04-28] MEDS ORDERED: DOXYCYCLINE HY100 MG PO (09:54)
--- NOTE | 2023-04-28 09:54 | NUR ---
PATIENT ALERT AND ORIENTED X4. VSS. PATIENT HERE FOR RIGHT HIP DISLOCATION. IV TO LEFT FA INT AND FLUSHES WELL. DRESSING TO RIGHT ELBOW INTACT. DRESSING TO LEFT INNER THIGH INTACT. PATIENT REFUSES TO WEAR THE ABDUCTOR PILLOW. PATIENT REPORTS PAIN 6/10, REQUESTS A PAIN PILL. PATIENT EATING BREAKFAST. NO FURTHER NEEDS. CALL LIGHT IN REACH. BED ALARM ON.
--- NOTE | 2023-04-28 14:30 | NUR ---
DISCHARGE INSTRUCTIONS PROVIDED. PATIENT EDUCATION GIVEN. IV DC'D. DRESSINGS REINFORCED. FOLLOW UP APPOINTMENTS DISCUSSED. MEDICATIONS REVIEWED. PATIENT DENIES ANY QUESTIONS OR CONCERNS. PATIENT ESCORTED OUT VIA WHEELCHAIR WITH BELONGINGS.
--- NOTE | 2023-04-28 15:48 | NUR ---
MILAN was informed pt is requesting [facility] services for cooking, cleaning, etc. SW called and provided information and a referral to [facility]. They report they will take the referral and an Milk Drier will reach out to patient.
--- NOTE | 2023-04-28 17:10 | NUR ---
ash pit worker was notified patient was medically stable for discharge. NAOMI contacted [facility] where the referral for the patient was sent. [facility] is unable to accept Medicaid only patient's at this time. NAOMI contacted all agencies from the Medicare.gov list of options for home health in the patient's area. The only agency that takes Medicaid patients at this time is [facility]. Naomi met with patient and confirmed she would like a referral sent to [facility] for home health. NAOMI was also notified patient would like [facility] to come assist with meal prep, cleaning, etc. NAOMI faxed referral to [facility]. NAOMI was notified patient is in need of transportation home and asked about her walker. NAOMI met with patient and expressed she would assist patient would scheduling an uber as she does not have family available to transport. Patient expressed she did not want a walker and would use her cane at her house. No further questions or concerns. NAOMI requested assistance from NAOMI Dorman with contacting [facility] for the patient, see Lakia's note. NAOMI was notified patient is ready for discharge. NAOMI scheduled uber transportation for the patient. NAOMI was notified by [facility] they were missing her face sheet. NAOMI faxed the facesheet and discharge orders to [facility]. Discharge plan: home with home health
== END 2023-04-28 14:31 | disposition home or self-care (01) | DRG 538 ==
LOC: COL.ER 22:14 → SURG 04-25 02:55
PROVIDERS: Emergency Medicine; Internal Medicine; ADMIT Internal Medicine
DX: S73.004A Unspecified dislocation of right hip, initial encounter (principal)
CPT/HCPCS: A9284; A9500-JZ; J0696; J1920; J2060; J2250; J2270; J2405; J2704; J2785; J3010; J3370; J7030; J7050; Q3014

== ENCOUNTER 2023-05-08 15:42 | Emergency (ER) | payer MEDICAID ==
[~2023-05-08] VITALS: Ht 160 cm; Wt 56.8 kg
[~2023-05-08 15:42] MED LIST changes: +DESYREL DIVIDO150 M1 PO; +DOXYCYCLINE HY100 MG PO; +THORAZINE100 MG/TAB PO
[2023-05-08] MEDS ORDERED: Morphine 4 MG/ML VIAL IV PRN ×2 (16:00→20:45)
[2023-05-08] MEDS ORDERED: NS 1,000 ML IV ONE (16:00)
[2023-05-08] MEDS ORDERED: Ondansetron 4 MG/2 ML VIAL IV ONE (16:15)
[2023-05-08 17:00] LABS: BASO % 0.7 % (0.0-2.0); EOS # 0.1 K/mm3 (0.0-0.7); EOS % 1.1 % (0.0-4.0); GRAN # 3.9 K/mm3 (1.4-6.5); GRAN % 68.9 % (42.2-75.2); HEMATOCRIT 38.2 % (37.0-47.0); HEMOGLOBIN 12.8 g/dl (12.5-16.0); LYMPH % 18.1 % (20.0-51.0); MEAN CELL VOLUME 97 fl (80.0-100.0); MEAN CORPUSCULAR HEMOGLOBIN 32 pg (27-31); MEAN CORPUSCULAR HGB CONC 34 g/dl (33.0-37.0); MEAN PLATELET VOLUME 8.6 fl (7.4-10.4); MONO # 0.6 K/mm3 (0.1-0.6); PLATELET COUNT 266 K/mm3 (130-400); RED BLOOD COUNT 3.96 M/mm3 (4.10-5.30); REDCELL DISTRIBUTION WIDTH-CV 13.8 % (11.5-14.5)
[2023-05-08 17:19] LABS: ALBUMIN 3.1 gm/dL (3.4-4.8); BILIRUBIN,TOTAL 0.2 mg/dL (0.2-1.2); CALCIUM 8.8 mg/dL (8.4-10.2); CREATININE, serum 0.77 mg/dL (0.57-1.11); POTASSIUM 3.7 mmol/L (3.5-4.5); TOTAL PROTEIN 6.3 gm/dL (6.2-8.1)
[2023-05-08] MEDS ORDERED: Morphine 4 MG/ML VIAL IV ONE ×2 (19:00→21:30)
[2023-05-08] MEDS ORDERED: Ondansetron 4 MG/2 ML VIAL IV PRN ×3 (19:00→21:30)
[2023-05-08 21:45] VITALS: BP 135/85; PULSE 77; TEMP 97.5
== END 2023-05-08 21:45 | disposition other institution (70) ==
LOC: COL.ER 15:42
PROVIDERS: Personal Emergency Response Attendant
DX: S72.401A Unspecified fracture of lower end of right femur, initial encounter for closed fracture (principal); F17.200 Nicotine dependence, unspecified, uncomplicated; Z98.890 Other specified postprocedural states; W18.30XA Fall on same level, unspecified, initial encounter; Y92.009 Unspecified place in unspecified non-institutional (private) residence as the place of occurrence of the external cause
CPT/HCPCS: J2270; J2405; J7030